=== PATIENT | male | born 1980 | race Caucasian/White ===

== ENCOUNTER 2022-08-22 02:20 | Day surgery (SDC) | payer BC, SELFPAY ==
[2022-08-09 12:13] VITALS: BMI 24.7
[2022-08-22 09:15] VITALS: BP 132/69; PULSE 73; RESP 18; TEMP 35.8; O2SAT 100; BMI 24.6
[2022-08-22] MEDS: LACTATED RINGERS 1,000 ML 150 ML IV CONT (09:37)
--- NOTE | 2022-08-22 10:29 | PM.HPGS ---
History of Present Illness History of Present Illness Consent: Risks, benefits, and alternatives have been discussed and questions answered. Patient agrees to proceed with procedure. Chief complaint: abd pain, fam history colon cancer Narrative: Douglas Bobo is a 42 year old male with intermittent burning sensation in llq, using pantoprazole. CT scan negative, never had scopes. Review of Systems Constitutional: Constitutional: Denies headache(s) and Denies weakness Eyes: Eyes: Denies blurry vision ENT: Reports Normal hearing present, Denies headache(s) and Denies neck pain Cardiovascular: Cardiovascular: Denies chest pain and Denies dyspnea Respiratory: Respiratory: Denies dyspnea Gastrointestinal: Gastrointestinal: Reports no additional gastrointestinal complaints Genitourinary: Genitourinary: Denies dysuria Musculoskeletal: Musculoskeletal: Denies neck pain Integumentary/Breasts: Skin/Breast: Denies dry skin Neurologic: Reports Normal hearing present, Denies headache(s) and Denies weakness Psychiatric: Psychiatric: Denies anxiety Endocrine: Endocrine: Denies change in body appearance Hematologic/Lymphatic: Hematologic/Lymphatic: Denies easy bleeding Allergic/Immunologic: Allergic/Immunologic: Denies urticaria PMFSH Past Medical History Medical History (Updated 08/22/22 @ 10:29 by Andres Winter MD) LLQ pain Social History Social History Smoking status: Never smoker Alcohol intake: current Drinks per week: 4 Substance use: never Substance use type: does not use Living arrangements: with family Spiritual care concerns: No Meds Home Medications and Allergies Home Medications Medication Instructions Recorded Confirmed Type pantoprazole 40 mg tablet,delayed 40 mg PO DAILY 08/09/22 08/22/22 History release Allergies Allergy/AdvReac Type Severity Reaction Status Date / Time No Known Allergies Allergy Verified 08/22/22 09:26 Vital Signs Vital Signs - 24 hr 08/22/22 09:15 Temperature 96.4 F L Pulse Rate 73 Respiratory Rate 18 Blood Pressure 132/69 Pulse Oximetry 100 Oxygen Delivery Room Air Exam Const: General: comfortable and no acute distress HENMT: Face/Nose/Sinus: Normal nares present Eyes: General: appearance normal, both eyes and all related structures Neck: Neck: no JVD Resp: Auscultation: clear to auscultation bilaterally Cardio: Rate: regular rate Rhythm: regular rhythm GI: Inspection: non-distended GI Palp: Yes Soft to palpation Skin: General skin exam: normal color Neuro: General: gait normal Speech: normal speech Extrem: General: normal to inspection Psych: Mental Status: mental status grossly normal Assessment and Plan Assessment and plan (1) LLQ pain: Code(s): R10.32 - Left lower quadrant pain Status: Acute Assessment and Plan: egd and colonoscopy
--- NOTE | 2022-08-22 10:36 | P.PNAN_ITS ---
Anes - Initial Pre Proc Eval Procedure: Operation Date: 08/22/22 10:45 Proposed Procedures p Esophagogastroduodenoscopy & Colonoscopy - Andres Winter MD Date/Time: 08/22/22 10:36 Surgeon: Andres Winter MD Pre Op Diagnosis: abd pain, fam history colon cancer Patient Data Age: 42 Gender: M Height: 1.83 m Weight: 82.3 kg Last Vital Signs Temp 96.4 F L 08/22/22 09:15 Pulse 73 08/22/22 09:15 Resp 18 08/22/22 09:15 BP 132/69 08/22/22 09:15 Pulse Ox 100 08/22/22 09:15 O2 Del Method Room Air 08/22/22 09:15 Allergies Allergy/AdvReac Type Severity Reaction Status Date / Time No Known Allergies Allergy Verified 08/22/22 09:26 Home Medications Medication Instructions Recorded Confirmed Type pantoprazole 40 mg tablet,delayed 40 mg PO DAILY 08/09/22 08/22/22 History release Patient hx anesthesia problems: none Family hx anesthesia problems: none Results Review: All pre-operative results and documents have been reviewed as part of the pre- operative evaluation. [facility] Past Medical History Medical History (Updated 08/22/22 @ 10:29 by Andres Winter MD) LLQ pain Social History Social History Smoking status: Never smoker Alcohol intake: current Drinks per week: 4 Substance use: never Substance use type: does not use Living arrangements: with family Spiritual care concerns: No Anes - Eval Final PreProcedure Day of Procedure 08/22/22 10:36 Patient weight: normal Heart: regular rate and rhythm Lungs: clear to auscultation Airway: Mallampati scale class II Neurological: alert and oriented Last oral intake: >/= 8 hours ASA classification: II Emergent: no Anesthetic plan: proceed Anesthesia type and monitoring: general GIVS and standard monitoring Results Review: All pre-operative results and documents have been reviewed as part of the pre- operative evaluation. Informed Consent: The patient's anesthetic plan and its attendant risks and benefits were discussed with the patient/family/POA. Questions were solicited and answers provided to the satisfaction of the patient/family/POA.
--- NOTE | 2022-08-22 10:50 | SUR.OPER ---
EGD ENDED 1043, COLONOSCOPY STARTED 1049
[2022-08-22 11:04] VITALS: BP 94/47; PULSE 55; RESP 24; O2SAT 99
[2022-08-22 11:14] VITALS: BP 95/52; PULSE 50; RESP 14; O2SAT 100
[2022-08-22 11:24] VITALS: BP 94/58; PULSE 50; RESP 13; O2SAT 100
== END 2022-08-22 11:35 | disposition home or self-care (01) ==
PROVIDERS: PCP Emergency Medicine; Visit Provider Internal Medicine Gastroenterology
PROC: 0DJ08ZZ Inspection of Upper Intestinal Tract, Via Natural or Artificial Opening Endoscopic (ICD-10-PCS; CPT 43235; principal; 2022-08-22 10:45)
DX: R10.32 Left lower quadrant pain (principal); K63.5 Polyp of colon; K64.8 Other hemorrhoids; Z80.0 Family history of malignant neoplasm of digestive organs
CPT/HCPCS: 45385; 88305; 88342; J2704; J7120

== ENCOUNTER 2023-07-02 09:47 | Outpatient (CLI) | payer BC, SELFPAY ==
--- NOTE | ~2023-07-02 | XR_ITS ---
EXAMINATION: XR chest 2V 07/02/2023 10:04 INDICATION: Left anterior rib pain. History of left rib fracture. PROCEDURE: 2 view chest COMPARISON: No prior studies for comparison. FINDINGS: The lungs are clear. The cardiomediastinal silhouette is within normal limits. There are no pleural effusions. There is no pneumothorax suspected. IMPRESSION: 1: NO ACUTE CARDIOPULMONARY DISEASE. Reviewed, dictated and finalized at location L.
== END 2023-07-02 09:48 | disposition home or self-care (01) ==
PROVIDERS: PCP Emergency Medicine; Visit Provider Nurse Practitioner
DX: R07.81 Pleurodynia (principal)
CPT/HCPCS: 71046

== ENCOUNTER 2023-08-16 09:05 | Emergency (ER) | payer BC, SELFPAY ==
[2023-08-16 09:06] VITALS: BP 131/75; PULSE 63; RESP 18; TEMP 36.3; O2SAT 100
--- NOTE | 2023-08-16 11:03 | ED.SKABFB ---
HPI - Skin/Abscess/Foreign Bdy General Chief complaint: Skin/Abscess/Foreign Body Stated complaint: boil Time Seen by Provider: 08/16/23 09:56 Source: patient Mode of arrival: ambulatory Limitations: no limitations History of Present Illness HPI narrative: This is a 43-year-old male that presents to the emergency department for an abscess to the left groin. Present over the last week. Denies fevers or drainage. Related Data Home Medications Medication Instructions Recorded Confirmed pantoprazole 40 mg tablet,delayed 40 mg PO DAILY 08/09/22 07/02/23 release Allergies Allergy/AdvReac Type Severity Reaction Status Date / Time No Known Allergies Allergy Verified 07/02/23 09:04 Review of Systems Review of Systems: CONSTITUTIONAL: Denies fever SKIN: Reports abscess All systems reviewed & are unremarkable except as noted in HPI and below PMFSH Past Medical History Medical History (Updated 08/16/23 @ 11:03 by Dee Nava PA-C) Abdominal pain of unknown cause Family hx of colon cancer Gastric intestinal metaplasia Gastric nodule Hyperplastic colon polyp LLQ pain Rib pain on left side Social History Social History Smoking status: Never smoker Alcohol intake: current Drinks per week: 4 Substance use: never Substance use type: does not use Living arrangements: with family Spiritual care concerns: No Exam Narrative: GENERAL: Well-appearing, well-nourished, and in no acute distress. HEAD: Normocephalic, atraumatic. EYES: EOMI. EXTREMITIES: Normal range of motion. Left groin with 3 cm area of erythema and edema with central fluctuance, mild surrounding cellulitis SKIN: Warm, dry, no rash. NEURO: No focal deficits. Alert and oriented x3. PSYCH: Normal mood and affect Course Course Emergency Course: Patient educated on further wound care. Agrees with plan of care Vital Signs Vital signs: Vital Signs Temperature 97.4 F L 08/16/23 09:06 Pulse Rate 63 08/16/23 09:06 Respiratory Rate 18 08/16/23 09:06 Blood Pressure 131/75 08/16/23 09:06 Pulse Oximetry 100 08/16/23 09:06 Oxygen Delivery Room Air 08/16/23 09:06 Temperature 97.4 F L 08/16/23 09:06 Pulse Rate 63 08/16/23 09:06 Respiratory Rate 18 08/16/23 09:06 Blood Pressure 131/75 08/16/23 09:06 Pulse Oximetry 100 08/16/23 09:06 Oxygen Delivery Room Air 08/16/23 09:06 Procedures Abscess I/D lower extremity: Date of Incision: 08/16/23 Time of Incision: 11:08 Side (if applicable): left Local Anesthetic: lidocaine 1% and with epi Amount of anesthesia used (mL): 3 Technique: incised with #11 blade Irrigation: Yes Packing used?: iodoform I&D Results: Pus and Blood Abcess I&D Additional Comments: Loculations broken up MDM - Skin/Abscess/Foreign Bdy MDM Narrative Medical decision making narrative: Patient presents to the emergency department for an abscess to his left groin. Mild surrounding cellulitis. Patient is afebrile and nontoxic-appearing. Successful incision and drainage. Patient educated on further wound care. Will be started on oral antibiotics. Instructed to follow-up with his primary provider. He was given warnings to return to the ER Differential Diagnosis Differential diagnosis: Likely abscess of skin or subcutaneous tissue and cellulitis Critical Care Time Critical Care Time Critical Care Time: No Discharge Plan Discharge Clinical Impression: Abscess Patient Disposition: Home, Self-Care Condition: Stable Instructions: Antibiotic Form, Abscess (ED) Additional Instructions: Return if symptoms worsen or concerns: any increase in redness, swelling, pain or fever over 101 Take antibiotics as directed. Clean wound with mild soapy water. Apply antibiotic ointment and clean dressing at least three times daily. Warm compresses 3 times a day for 30 minutes each Follow up wit
== END 2023-08-16 11:13 | disposition home or self-care (01) ==
PROVIDERS: Emergency Provider Physician Assistant
DX: L02.214 Cutaneous abscess of groin (principal)
CPT/HCPCS: 10061; 87070; 87205; 99283

== ENCOUNTER 2023-09-03 00:57 | Day surgery (SDC) | payer BC, SELFPAY ==
[2023-08-22 11:37] VITALS: BMI 25.1
--- NOTE | 2023-08-30 10:15 | SUR.PREOP ---
Patient called regarding upcoming procedure. Message left on patient's voicemail regarding preop instructions, appointment times, and procedure prep.
[2023-09-03 07:43] VITALS: BP 127/69; PULSE 60; RESP 16; TEMP 36.3; O2SAT 99; BMI 25.2
[2023-09-03] MEDS: LACTATED RINGERS 1,000 ML 150 ML IV CONT (07:50)
--- NOTE | 2023-09-03 08:17 | P.PNAN_ITS ---
Anes - Initial Pre Proc Eval Procedure: Operation Date: 09/03/23 09:00 Proposed Procedures p Esophagogastroduodenoscopy - Andres Winter MD Date/Time: 09/03/23 08:17 Surgeon: Andres Winter MD Pre Op Diagnosis: gastric polyp Patient Data Age: 43 Gender: M Height: 1.83 m Weight: 84.5 kg Last Vital Signs Temp 97.4 F L 09/03/23 07:43 Pulse 60 09/03/23 07:43 Resp 16 09/03/23 07:43 BP 127/69 09/03/23 07:43 Pulse Ox 99 09/03/23 07:43 O2 Del Method Room Air 09/03/23 07:43 Allergies Allergy/AdvReac Type Severity Reaction Status Date / Time No Known Allergies Allergy Verified 09/03/23 07:41 Home Medications Medication Instructions Recorded Confirmed Type pantoprazole 40 mg tablet,delayed 40 mg PO DAILY 08/09/22 09/03/23 History release Patient hx anesthesia problems: none Family hx anesthesia problems: none Results Review: All pre-operative results and documents have been reviewed as part of the pre- operative evaluation. [facility] Past Medical History Medical History (Updated 08/17/23 @ 00:00 by Background Daemon) Abdominal pain of unknown cause Family hx of colon cancer Gastric intestinal metaplasia Gastric nodule Hyperplastic colon polyp LLQ pain Rib pain on left side Social History Social History Smoking status: Never smoker Alcohol intake: current Drinks per week: 4 Substance use: never Substance use type: does not use Living arrangements: with family Spiritual care concerns: No Anes - Eval Final PreProcedure Day of Procedure 09/03/23 08:17 Patient weight: normal Heart: regular rate and rhythm Lungs: clear to auscultation Airway: Mallampati scale class II Neurological: alert and oriented Last oral intake: >/= 8 hours ASA classification: II Emergent: no Anesthetic plan: proceed Anesthesia type and monitoring: general GIVS and standard monitoring Results Review: All pre-operative results and documents have been reviewed as part of the pre- operative evaluation. Informed Consent: The patient's anesthetic plan and its attendant risks and benefits were discussed with the patient/family/POA. Questions were solicited and answers provided to the satisfaction of the patient/family/POA.
--- NOTE | 2023-09-03 08:43 | PM.HPGS ---
History of Present Illness History of Present Illness Consent: Risks, benefits, and alternatives have been discussed and questions answered. Patient agrees to proceed with procedure. Chief complaint: gastric polyp Narrative: Douglas Bobo is a 43 year old male with previous egd showed intestinal metaplasia, also pancreatic rest, he is not longer having any more pain. Review of Systems Constitutional: Constitutional: Denies headache(s) and Denies weakness Eyes: Eyes: Denies blurry vision ENT: Reports Normal hearing present, Denies headache(s) and Denies neck pain Cardiovascular: Cardiovascular: Denies chest pain and Denies dyspnea Respiratory: Respiratory: Denies dyspnea Gastrointestinal: Gastrointestinal: Reports no additional gastrointestinal complaints Genitourinary: Genitourinary: Denies dysuria Musculoskeletal: Musculoskeletal: Denies neck pain Integumentary/Breasts: Skin/Breast: Denies dry skin Neurologic: Reports Normal hearing present, Denies headache(s) and Denies weakness Psychiatric: Psychiatric: Denies anxiety Endocrine: Endocrine: Denies change in body appearance Hematologic/Lymphatic: Hematologic/Lymphatic: Denies easy bleeding Allergic/Immunologic: Allergic/Immunologic: Denies urticaria PMF Past Medical History Medical History (Updated 08/17/23 @ 00:00 by Background Daemon) Abdominal pain of unknown cause Family hx of colon cancer Gastric intestinal metaplasia Gastric nodule Hyperplastic colon polyp LLQ pain Rib pain on left side Social History Social History Smoking status: Never smoker Alcohol intake: current Drinks per week: 4 Substance use: never Substance use type: does not use Living arrangements: with family Spiritual care concerns: No Meds Home Medications and Allergies Home Medications Medication Instructions Recorded Confirmed Type pantoprazole 40 mg tablet,delayed 40 mg PO DAILY 08/09/22 09/03/23 History release Allergies Allergy/AdvReac Type Severity Reaction Status Date / Time No Known Allergies Allergy Verified 09/03/23 07:41 Vital Signs Vital Signs - 24 hr 09/03/23 07:43 Temperature 97.4 F L Pulse Rate 60 Respiratory Rate 16 Blood Pressure 127/69 Pulse Oximetry 99 Oxygen Delivery Room Air Exam Const: General: comfortable and no acute distress HENMT: Face/Nose/Sinus: Normal nares present Eyes: General: appearance normal, both eyes and all related structures Neck: Neck: no JVD Resp: Auscultation: clear to auscultation bilaterally Cardio: Rate: regular rate Rhythm: regular rhythm GI: Inspection: non-distended GI Palp: Yes Soft to palpation Skin: General skin exam: normal color Neuro: General: gait normal Speech: normal speech Extrem: General: normal to inspection Psych: Mental Status: mental status grossly normal Assessment and Plan Assessment and plan (1) Gastric intestinal metaplasia: Code(s): K31.A0 - Gastric intestinal metaplasia, unspecified Status: Acute Assessment and Plan: egd with random bx
[2023-09-03] MEDS: BENZOCAINE (*SP) 60 ML SPRAY CAN (HURRICAINE) 1 SPRAY MUCOUS MEM (08:45)
[2023-09-03 08:55] VITALS: BP 100/67; PULSE 50; RESP 14; O2SAT 100
[2023-09-03 09:05] VITALS: BP 122/66; PULSE 48; RESP 16; O2SAT 100
[2023-09-03 09:15] VITALS: BP 133/80; PULSE 50; RESP 223; O2SAT 100
== END 2023-09-03 09:28 | disposition home or self-care (01) ==
PROVIDERS: Visit Provider Internal Medicine Gastroenterology
PROC: 0DJ08ZZ Inspection of Upper Intestinal Tract, Via Natural or Artificial Opening Endoscopic (ICD-10-PCS; CPT 43235; principal; 2023-09-03 09:00)
DX: Z09 Encounter for follow-up examination after completed treatment for conditions other than malignant neoplasm (principal); K29.50 Unspecified chronic gastritis without bleeding; D13.1 Benign neoplasm of stomach; Z87.19 Personal history of other diseases of the digestive system; Z80.0 Family history of malignant neoplasm of digestive organs
CPT/HCPCS: 43239; 88305; J2704; J7120

== ENCOUNTER 2025-01-19 14:32 | Outpatient (CLI) | payer BC, SELFPAY ==
--- NOTE | ~2025-01-19 | XR_ITS ---
Clinical Indication: Cough PA and lateral views of the chest: Comparison: 07/02/2023 Findings: The lungs are clear, without evidence of focal consolidation or pleural effusion. Cardiome diastinal silhouette is within normal limits. Bones and soft tissues are unremarkable. Impression: Normal chest. Reviewed, dictated and finalized at location . Impression: Normal chest.
== END 2025-01-19 14:33 | disposition home or self-care (01) ==
PROVIDERS: PCP Emergency Medicine; Visit Provider Emergency Medicine
DX: R05.3 Chronic cough (principal)
CPT/HCPCS: 71046

== ENCOUNTER 2025-01-27 14:20 | Outpatient (CLI) | payer BC, SELFPAY ==
--- NOTE | ~2025-01-27 | CT_ITS ---
CLINICAL INDICATION: Abdominal pain COMPARISON: None. TECHNIQUE: Multiple contiguous axial images of the abdomen and pelvis were performed following the ad ministration of with 100 mL Omnipaque-350 intravenous contrast The dose-length product (DLP) was 338.35 mGy-cm. Automated exposure control and iterative reconstruction technique were employed. FINDINGS/OBSERVATIONS: Visualized lower thorax: The bilateral lung bases are clear. The heart is of normal size, without pericardial effusion. Liver: The liver demonstrates homogeneous enhancement and is enlarged measuring 19 cm in longitudinal dimens ion. Gallbladder and biliary system: The gallbladder is only minimally distended, and otherwise unremarkable. Pancreas: The pancreas enhances homogeneously without ductal dilatation. Spleen: The spleen enhances homogeneously and is borderline enlarged measuring 12 cm in longitudinal dimensio n. Kidneys: The bilateral kidneys enhance symmetrically without hydronephrosis or renal calculi. Adrenal glands: Unremarkable. Gastrointestinal tract: Fecal stasis within the colon. Appendix: The air-filled appendix is of normal caliber (axial series, images 113 through 125). Vasculature: Unremarkable. Lymph nodes: No pathologically enlarged or morphologically suspicious lymph nodes within the retroperitoneum or at the root of the mesentery. Pelvic structures: The bladder is decompressed, and otherwise unremarkable. The prostate gland is not enlarged. Body wall and musculoskeletal: No significant degenerative disease within the lower thoracic or lumbosacral spine. IMPRESSION: Hepatomegaly. Borderline splenic enlargement. Moderate fecal stasis within the colon. Reviewed, dictated and finalized at location A.
--- OUTSIDE RECORDS SUMMARY | 2025-01-27 15:59 | XMS_ITS | Clinical Summary ---
Author Organization [facility] Address [address] [place] [address] Care Team Providers Care Production Control Specialist Name Role Phone Unavailable Primary Care Provider Unavailabl e Allergies No known active allergies Medications No known medications Active Problems Problem Noted Date Diagnosed Date Preventative health care 08/08/2017 Family History Medical History Relation Name Comments Healthy Father Healthy Mother Relation Name Status Comments Father Alive Mother Alive Social History Tobacco Use Types Packs/Day Years Used Date Smoking Tobacco: Never Alcohol Use Standard Drinks/Week Comments Yes 0 (1 standard drink = 0.6 oz pur e alcohol) social Sex and Gender Information Value Date Recorded Sex Assigned at Not on file Legal Sex Male 1:07 PM PCT Gender Identity Not on file Sexual Orientation Not on file Last Filed Vital Signs Vital Sign Reading Time Taken Comments Blood Pressure 125/74 06/23/2016 4:22 PM CDT Pulse 60 06/23/2016 4:22 PM CDT Temperature 37 C (98.6 F) 06/23/2016 4:22 PM CDT Respiratory Rate 18 06/23/2016 4:22 PM CDT Oxygen Saturation 100% 06/23/2016 4:22 PM CDT Inhaled Oxygen Concentration - - Weight 82.6 kg (182 lb) 06/23/2016 4:22 PM CDT Height 182.9 cm (6') 06/23/2016 4:22 PM CDT Body Mass Index 24.68 06/23/2016 4:22 PM CDT Plan of Treatment Health Maintenance Due Date Last Done Comments DTAP/TDAP/TD VACCINES (1 - Tdap) 2001 HEPATITIS B VACCINES (1 of 3 - 19+ 3-dose series) 2001 INFLUENZA VACCINE (#1) 2024 HPV VACCINES Aged Out No longer eligi ble based on patient's age to complete this topic PNEUMOCOCCAL VACCINE 0-49 YEARS Aged Out No longer eligible based on patient's age to complete this topic
--- OUTSIDE RECORDS SUMMARY | 2025-01-27 15:59 | XMS_ITS | Clinical Summary ---
Author Organization [facility] [employer] Address [address] [place] [address] Care Team Providers Care Kst Operator Name Role Phone Tre Armstrong MD Primary Care Provider [phone] Source Comments [facility] [employer] [facility],non-owned Affiliates and Associated Physician Practices is amultiple site organization consisting of ambulatory clinics and hospital sitesin [place], [place], [place] and [place]. This disclosure is being madepursuant to the Care Everywhere program and may not contain all information available regarding this patient. Last updated 18.[facility] [employer] Social History Tobacco Use Types Packs/Day Years Used Date Smoking Tobacco: Never Assessed Sex and Gender Information Value Date Recorded Sex Assigned at Not on file Gender Identity Not on file Sexual Orientation Not on file Plan of Treatment Health Maintenance Due Date Last Done Comments LIPID TESTING 1982 HIV SCREENING 1997 HEPATITIS C SCREENING 06/12/2000 DTAP/TDAP/TD VACCINES (1 - Tdap) 2001 HEPATITIS B VACCINE (1 of 3 - 19+ 3-dose series) 2001 COVID-19 VACCINE ( - 2023-2 5 season) 2024 DEPRESSION SCREENING 10/21/2024 INFLUENZA VACCINE (Season Ended) 2025 ZOSTER VACCINE (1 of 2) 2032 HIB VACCINE Aged Out No longer eligi ble based on patient's age to complete this topic HPV VACCINE Aged Out No longer eligi ble based on patient's age to complete this topic MENINGOCOCCAL (Group B) VACC INE SHARED DECISION-MAKING Aged Out No longer eligibl e based on patient's age to complete this topic MENINGOCOCCAL GROUPS A/C/Y/W VACCINE Aged Out No longer eligible b ased on patient's age to complete this topic PNEUMOCOCCAL VACCINE Aged Out No long er eligible based on patient's age to complete this topic Care Teams Kst Operator Relationship Specialty Start Date End Date Tre Armstrong MD [address] [place] [address] PCP - General 09/04/22
--- OUTSIDE RECORDS SUMMARY | 2025-01-27 15:59 | XMS_ITS | Encounter Summary ---
Author Organization [facility] Address [address] [place] [address] Care Team Providers Care Transition Advisor Name Role Phone Tre Armstrong MD Primary Care Provider [phone] Encounter Details Date Type Department Care Team (Late st Contact Info) Description 03/18/2020 Lab Requisition [facility] [address] [place] [address] Michelle Wynne MD [address] [place] [address] Social History Tobacco Use Types Packs/Day Years Used Date Smoking Tobacco: Never Assessed Sex and Gender Information Value Date Recorded Sex Assigned at Not on file Gender Identity Not on file Sexual Orientation Not on file documented as of this encounter Plan of Treatment Not on file documented as of this encounter Procedures Procedure Name Priority Date/Time Associated Diagnosis Comments DERMATOPATHOLOGY Routine 03/17/2020 12:0 0 AM CDT documented in this encounter Results * DERMATOPATHOLOGY (03/17/2020 12:00 AM CDT) Case Report Dermatopathology Report Case: [id number] Authorizing Provider: Mcihelle Wynne MD Collected: 03/17/2020 12:00 AM Ordering Location: [facility] Received: 03/18/2020 07:50 AM Pathologist: Judy Macdonald MD Specimen: Skin, right shoulder 0 6:40 PM CDT DERMATOPATHOLOGY LABORATORY Final Diagnosis Specimen A. 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 0 6:40 PM T DERMATOPATHOLOGY LABORATORY Gross Description Specimen A: Received is one formalin filled container labeled with the patient's name and designated right shoulder. The specimen consists of a punch measuring [id number], bisected. Jar 0. 0 6:40 PM T DERMATOPATHOLOGY LABORATORY Microscopic Description Specimen A. SKIN, right shoulder: In the dermis, there is a superficial perivascular and perifollicular mainly lymphohistiocytic inflammatory infiltrate. There is focal superficial dermal fibrosis. Perieccrine fat is intact. Grocott's methenamine silver (GMS) stain highlights fungal yeast forms consistent with pityrosporum spp. Additional deeper sections were obtained and reviewed. COMMENT: The findings are that of chronic perifolliculitis with dermal fibrosis, possibly secondary to rupture changes. Lichen sclerosus et atrophicus is less favored due to lack of dermal hyalinization. Clinical correlation is recommended. 0 6:40 PM CDT DERMATOPATHOLOGY LABORATORY Disclaimer An external and internal positive and negative controls are appropriate for the histochemical, immunohistochemical and immunofluorescence stain(s) in this case (if any), except where stated explicitly. The performance characteristics of the stain(s) cited in this report were developed and its performance characteristic determined by the Dermatopathology Laboratory at [facility], directed by Dr. Tae Zhao. These tests need not be, and therefore are not, approved by the [place] Food and Drug Administration. The tests are used for clinical purposes. Billing Codes Specimen Charges Stain Charges 14456 1 [id number] 1 0 6:40 PM CDT DERMATOPATHOLOGY LABORATORY Embedded Images 0 6:40 PM CDT DERMATOPATHOLOGY LABORATORY Pathology/Cytolog y TISSUE SPECIMEN FROM SKIN / Unknown 03/17/2020 03/18/2020 7:50 AM CDT Michelle Wynne MD LAB - PATHOLOGY/CYTO LOGY ORDERABLES DERMATOPATHOLOGY LABORATORY [facility] - Department of Dermatology [facility]/[address] [phone] documented in this encounter Visit Diagnoses Not on filedocumented in this encounter Care Teams Transition Advisor Relationship Specialty Start Date End Date Ter Armstrong MD [address] [place] [id number] PCP - General 09/04/22 documented as of this encounter
== END 2025-01-27 14:21 | disposition home or self-care (01) ==
PROVIDERS: PCP Emergency Medicine; Visit Provider Emergency Medicine
DX: R10.84 Generalized abdominal pain (principal); R16.0 Hepatomegaly, not elsewhere classified
CPT/HCPCS: 74177; Q9967

== ENCOUNTER 2025-10-14 06:39 | Emergency (ER) | payer BC, SELFPAY ==
[2025-10-14 06:40] VITALS: BP 112/75; PULSE 60; RESP 18; TEMP 36.6; O2SAT 98
[2025-10-14 08:11] VITALS: BP 114/70; PULSE 57; RESP 16; TEMP 36.5; O2SAT 100
[2025-10-14 08:20] LABS: Add Urine Microscopic? NO; Appearance Urine Clear (Clear); Glucose Urine UA Negative (Negative); Leukocyte Esterase Ur Negative LEU/UL (Negative); Nitrate Urine Negative (Negative); Specific Grav Ur 1.016 (1.001-1.035)
--- NOTE | 2025-10-14 08:44 | ED.GENADULT ---
HPI - General Adult General Chief complaint: Urogenital-Male Stated complaint: i think I have uti blood in urine Time Seen by Provider: 10/14/25 08:01 History of Present Illness HPI narrative: Patient is a 45-year-old male who presents ER with blood in his urine. He noticed it this morning. He noticed some darker urine a couple days ago. Associated with some mild discomfort to the posterior aspect of his right testicle. No known trauma. No fevers or chills or sweats. No discharge from the tip of the penis. He is sexually active with his for 15 years and no other partners. He does not have concern for STI. No abdominal pain. No diaphoresis or nausea. No flank pain. He is a nonsmoker with no family history of renal cysts or bladder cancer. Has not noticed bloody ejaculate. The patient was straining and moving furniture prior to the initial discomfort. Related Data Home Medications ?Medication ?Instructions ?Recorded ?Confirmed ?Last Taken ?Type pantoprazole 40 mg tablet,delayed 40 mg PO DAILY 08/09/22 09/03/23 Unknown History release Allergies Allergy/AdvReac Type Severity Reaction Status Date / Time No Known Allergies Allergy Verified 10/14/25 08:14 Review of Systems Constitutional: Constitutional: Reports no additional constitutional complaints Gastrointestinal: Gastrointestinal: Reports no additional gastrointestinal complaints Genitourinary: Genitourinary: Reports no additional male genitourinary complaints Musculoskeletal: Musculoskeletal: Reports no additional musculoskeletal complaints [facility] Past Medical History Medical History (Updated 10/14/25 @ 08:48 by Geo Mcclendon MD) Gastric intestinal metaplasia Hyperplastic colon polyp Family hx of colon cancer Abdominal pain of unknown cause Rib pain on left side Gastric nodule LLQ pain Surgical History Surgical History (Updated 10/14/25 @ 08:47 by Geo Mcclendon MD) H/O vasectomy Social History Social History Smoking status: Never smoker Alcohol intake: current Drinks per week: 4 Substance use: never Substance use type: does not use Living arrangements: with family Spiritual care concerns: No Exam Narrative: GENERAL: Well-appearing, well-nourished, and in no acute distress. HEAD: Normocephalic, atraumatic. ENT: Mucous membranes moist. CHEST: Clear to auscultation. No respiratory distress. HEART: Regular rate and rhythm. No murmur heard. Normal peripheral pulses. ABDOMEN: Soft, nontender, nondistended. : Normal appearing external genitalia. Minimal discomfort posterior aspect of the testicle at the epididymis. Normal lie of the testicles. No scrotal swelling. EXTREMITIES: Normal range of motion. No edema. NEURO: Alert and oriented x3. PSYCH: Normal mood and affect. Course Course Emergency Course: Patient resting comfortably. Given reassurance. Recommend continuing to wear supportive underwear taking scheduled anti-inflammatories. No signs of infection or blood in the urine. Exam consistent is not consistent with torsion. Patient is comfortable not obtaining ultrasound. Recommend follow-up with PCP or urology. Vital Signs Vital signs: Vital Signs Temperature 97.8 F 10/14/25 06:40 Pulse Rate 60 10/14/25 06:40 Respiratory Rate 18 10/14/25 06:40 Blood Pressure 112/75 10/14/25 06:40 Pulse Oximetry 98 10/14/25 06:40 Oxygen Delivery Room Air 10/14/25 06:40 Temperature 97.7 F 10/14/25 08:11 Pulse Rate 57 L 10/14/25 08:11 Respiratory Rate 16 10/14/25 08:11 Blood Pressure 114/70 10/14/25 08:11 Pulse Oximetry 100 10/14/25 08:11 Oxygen Delivery Room Air 10/14/25 08:11 MDM Differential Diagnosis Differential Diagnosis: UTI, urethritis, kidney stone, epididymitis, prostatitis, varicocele Lab Data [facility] Lab Attestation statement: I personally reviewed the patient's lab results. Labs: Lab Results 10/14/25 Range/Units 08:13 Urine Color Yellow (Yellow) Urine Appearance Clear (Clear) Urine pH 6.5 (5.0-9.0) Ur Specific Hext 1.016 (1.001-1.035) Urine Protein Negative (Negative) mg/dL Urine Glucose (UA) Negative (Negative) mg/dL Urine Ketones Negative (Negative) mg/dL Ur Blood (Man) Negative (Negative) Urine Nitrate Negative (Negative) Urine Bilirubin Negative (Negative) Urine Urobilinogen 0.2 (<2.0) mg/dL Leukocyte Esterase Rfl Negative (Negative) MADHAVI/UL Discharge Plan Discharge Clinical Impression: Pain in right testicle Patient Disposition: Home Condition: Stable Instructions: Testicle Pain (ED) Additional Instructions: Return ER if you have worsening pain, you are unable to urinate, you have fever over 100.4? F, you have abdominal pain with nausea vomiting, or you have additional concerns. Wear supportive underwear intake naproxen for pain. Patient Language: French Prescriptions: New naproxen 375 mg tablet 375 mg PO BID Qty: 14 0RF No Action pantoprazole 40 mg tablet,delayed release (DR/EC) 40 mg PO DAILY Follow-up/Referrals: Tre Armstrong MD [Primary Care Provider, Family Practice] Cali Ba MD [Physician, Urology] - 1 Week
[2025-10-14 09:12] VITALS: BP 109/67; PULSE 57; RESP 15; TEMP 36.6; O2SAT 100
== END 2025-10-14 09:13 | disposition home or self-care (01) ==
LOC: ANHED 08:59
PROVIDERS: Emergency Medicine; Emergency Provider Emergency Medicine; PCP Emergency Medicine
DX: N50.811 Right testicular pain (principal)
CPT/HCPCS: 81003; 99283